=== PATIENT | male | born 1980 | race Caucasian/White ===

== ENCOUNTER 2017-03-31 15:00 | Emergency (ER) | payer BC, OTHER ==
[~2017-03-31] VITALS: Wt 98.2 kg
--- NOTE | 2017-03-31 17:55 | RADRPT ---
PROCEDURE: XR Left Shoulder. CLINICAL INDICATION: Left shoulder pain TECHNIQUE: 3 views of the left shoulder are available for review. COMPARISON: None available FINDINGS: The study is limited due to patient positioning. There is concern for acromioclavicular joint injury with elevation of the distal clavicle and likely increase in the coracoclavicular distance. Questionable small fracture fragment at the distal clavicle is noted, not definitive. The greater tu berosity is not well assessed due to lack of a external rotation radiograph. Visualized left lung is clear. IMPRESSION: 1. Concern for acromioclavicular joint injury, possibly high-grade, suboptimally assessed due to pat ient positioning. 2. Questionable small fracture fragment at the distal clavicle, not definitive. Consider CT for fur ther evaluation. RPTAT: UU .Dheeraj Alva MD, Date Time Electronically viewed and signed by .Dheeraj Alva MD, on 03/31/2017 17:55 .K/
[2017-03-31] MEDS ORDERED: HYDR-902 PO (19:04)
[2017-03-31] MEDS ORDERED: IBUP800T25 PO (19:04)
--- NOTE | 2017-03-31 19:08 | ERD ---
ER Documentation Chief Complaint Date/Time DATE: 03/31/17 TIME: 19:06 Chief Complaint LEFT SHOULDER PAIN HPI This is a 36-year-old male who slipped and fell at work landing on his left shoulder. Was seen in urgent care and diagnosed with an AC separation. The patient does not understand his diagnosis and is here for reevaluation because his workplace said that they would not see him less he went to an ER for evaluation. Had no loss of consciousness no headache no neck pain no symptoms in the left arm or any other extremity. The pain is located at the AC joint is sharp and worse with movement better with rest. ROS All systems reviewed and are negative except as per history of present illness. Medications Home Meds Active Scripts Ibuprofen* (Motrin*) 800 Mg Tab, 800 MG PO Q6H Y for PAIN AND OR ELEVATED TEMP, #30 TAB Prov:NAYELI SMITH DO 03/31/17 Hydrocodone/Acetaminophen ([place] 10-325 Tablet) 1 Each Tablet, 1 TAB PO Q6H Y for PAIN, #20 TAB Prov:NAYELI SMITH DO 03/31/17 PMhx/Soc Medical and Surgical Hx: pt denies Medical Hx, pt denies Surgical Hx History of Surgery: No Anesthesia Reaction: No Hx Neurological Disorder: No Hx Respiratory Disorders: No Hx Cardiac Disorders: No Hx Psychiatric Problems: No Hx Miscellaneous Medical Probl: No Hx Alcohol Use: Yes Hx Substance Use: Yes Hx Tobacco Use: Yes Smoking Status: Never smoker FmHx Family History: No coronary disease Physical Exam Vitals Vital Signs Date Time Temp Pulse Resp B/P Pulse Ox O2 Delivery O2 Flow Rate FiO2 03/31/17 15:02 98.0 89 18 148/88 99 Physical Exam Const: Well-developed, well-nourished Head: Atraumatic, normocephalic Eyes: Normal Conjunctiva, PERRLA, EOMI, normal sclera, no nystagmus ENT: Normal External Ears, Nose and Mouth, moist mucus membranes. Neck: Full range of motion. No meningismus, no lymphadenopathy. Resp: Clear to auscultation bilaterally, no wheezing, rhonchi, rales Cardio: Regular rate and rhythm, no murmurs, S1 S2 present Abd: Soft, non tender x 4, non distended. Normal bowel sounds, no guarding or rebound, no pulsitile abdominal masses or bruits Skin: No petechiae or rashes, no ecchymosis , no maculopapular rash Back: No midline or flank tenderness Ext: No cyanosis, or edema, FROM x 4, normal inspection, neurovascularly intact x 4, there is tenderness the AC joint there is a clear AC separation. There is pain with range of motion strength is 5 out of 5 distal to that. Neur: Awake and alert, STR 5/5 x 4, sensation intact x 4, no focal findings, cerebellum intact Psych: Normal Mood and Affect Procedures/MDM PROCEDURE: XR Left Shoulder. CLINICAL INDICATION: Left shoulder pain TECHNIQUE: 3 views of the left shoulder are available for review. COMPARISON: None available FINDINGS: The study is limited due to patient positioning. There is concern for acromioclavicular joint injury with elevation of the distal clavicle and likely increase in the coracoclavicular distance. Questionable small fracture fragment at the distal clavicle is noted, not definitive. The greater tuberosity is not well assessed due to lack of a external rotation radiograph. Visualized left lung is clear. IMPRESSION: 1. Concern for acromioclavicular joint injury, possibly high-grade, suboptimally assessed due to patient positioning. 2. Questionable small fracture fragment at the distal clavicle, not definitive. Consider CT for further evaluation. RPTAT: UU .Dheeraj Alva MD, Date Time Electronically viewed and signed by .Dheeraj Alva MD, on 03/31/2017 17: 55 .K/ CC: NAYELI SMITH DO Departure Diagnosis: Primary Impression: AC separation, type 4 Encounter type: subsequent encounter Laterality: left Qualified Code: S43.102D - AC separation, type 4, left, subsequent encounter Condition: Stable Patient Instructions: Ac Joint Sprain Referrals: JOSIANE ARIAS MD, APOSTOLOS A. DO Mar 31, 2017 19:08
== END 2017-03-31 19:26 | disposition home or self-care (01) ==
LOC: FTE 15:00
DX: S43.102A Unspecified dislocation of left acromioclavicular joint, initial encounter (principal); W01.0XXA Fall on same level from slipping, tripping and stumbling without subsequent striking against object, initial encounter; Y92.89 Other specified places as the place of occurrence of the external cause; Z87.891 Personal history of nicotine dependence
CPT/HCPCS: 73030